=== PATIENT | male | born 1940 | race Caucasian/White ===

== ENCOUNTER 2021-07-01 10:59 | Emergency (ER) | payer MEDICARE ==
[~2021-07-01] VITALS: Ht 185.4 cm; Wt 100.0 kg
[2021-07-01] MEDS ORDERED: KEFLEX500 MG PO (11:54)
[2021-07-01] MEDS ORDERED: BACTRIM DS1 TAB PO (11:54)
[2021-07-01 12:32] VITALS: BP 131/61
== END 2021-07-01 12:40 | disposition home or self-care (01) ==
LOC: ED 10:59
PROC: 0H97XZZ Drainage of Abdomen Skin, External Approach (ICD-10-PCS; principal; 2021-07-01)
DX: L02.211 Cutaneous abscess of abdominal wall (principal); I10 Essential (primary) hypertension; B95.8 Unspecified staphylococcus as the cause of diseases classified elsewhere

== ENCOUNTER 2021-07-02 12:01 | Emergency (ER) | payer MEDICARE ==
[~2021-07-02] VITALS: Ht 185.4 cm; Wt 100.0 kg
[~2021-07-02 12:01] MED LIST: BACTRIM DS1 TAB PO; KEFLEX500 MG PO
[2021-07-02 14:40] VITALS: BP 147/70
== END 2021-07-02 14:40 | disposition home or self-care (01) ==
LOC: ED 12:01
DX: Z48.01 Encounter for change or removal of surgical wound dressing (principal); I10 Essential (primary) hypertension; E11.9 Type 2 diabetes mellitus without complications